=== PATIENT | female | born 1960 | race African-American/Black ===

== ENCOUNTER 2016-11-11 20:47 | Emergency (ER) | payer OTHER ==
[~2016-11-11] VITALS: Ht 157.5 cm; Wt 72.6 kg
[2016-11-11 21:19] VITALS: BP 175/109
== END 2016-11-12 07:00 | disposition left against medical advice (07) ==
LOC: ER 11-12 06:57
DX: R51 Headache (principal); I10 Essential (primary) hypertension; Z90.710 Acquired absence of both cervix and uterus

== ENCOUNTER 2020-04-11 01:58 | Emergency (ER) | payer BC, OTHER ==
[~2020-04-11] VITALS: Ht 157.5 cm; Wt 73.0 kg
[2020-04-11 04:00] VITALS: BP 147/93
== END 2020-04-11 04:01 | disposition home or self-care (01) ==
LOC: ER 01:58
DX: I10 Essential (primary) hypertension (principal); Z90.710 Acquired absence of both cervix and uterus
CPT/HCPCS: 99281

== ENCOUNTER 2021-03-23 22:05 | Emergency (ER) | payer OTHER ==
[~2021-03-23] VITALS: Ht 157.5 cm; Wt 70.0 kg
[~2021-03-23 22:05] MED LIST: ASPI-1160 PO; LEVO75TA7 PO; LIP40 PO; LOSA100T32 PO
[2021-03-23 22:15] VITALS: BP 150/85
== END 2021-03-24 01:26 | disposition left against medical advice (07) ==
LOC: ER 22:05
DX: Z53.21 Procedure and treatment not carried out due to patient leaving prior to being seen by health care provider (principal); I10 Essential (primary) hypertension; R07.89 Other chest pain
CPT/HCPCS: 93005

== ENCOUNTER 2021-04-03 00:10 | Inpatient (IN) | payer OTHER ==
[~2021-04-03] VITALS: Ht 157.5 cm; Wt 78.1 kg
[2021-04-03 04:06] LABS: BASOPHILS % 0.7 % (0.0-2.0); HEMATOCRIT. 41.5 % (36.0-48.0); HEMOGLOBIN. 14.5 g/dL (12.0-16.0); LYMPHOCYTES % 26.4 % (20.0-50.0); MEAN CORPUSCULAR HEMOGLOBIN 30.5 pg (28.0-32.0); MEAN CORPUSCULAR VOLUME 86.9 fL (81.0-99.0); MONOCYTES % 6.4 % (2.0-8.0); NEUTROPHILS % 64.5 % (40.0-76.0); PLATELET 193 x1000/uL (130-400); RED BLOOD CELL COUNT 4.77 mill/uL (4.2-5.4)
[2021-04-03 04:14] LABS: CHLORIDE 108 mEq/L (98-107)
[2021-04-03] MEDS ORDERED: ONDANSETRON HCL 4MG/2ML INJ IV PRN (09:15)
[2021-04-03 10:40] LABS: *AMPHETAMINES SCREEN URINE NEGATIVE (NEGATIVE); *BARBITURATES SCREEN URINE NEGATIVE (NEGATIVE); *BENZODIAZEPINES SCREEN URINE NEGATIVE (NEGATIVE); *COCAINE SCREEN URINE NEGATIVE (NEGATIVE); METHADONE URINE SCREEN NEGATIVE (NEGATIVE); OPIATES URINE SCREEN NEGATIVE (NEGATIVE)
[2021-04-03 10:41] LABS: CANNABINOID URINE SCREEN NEGATIVE (NEGATIVE); PHENCYCLIDINE URINE SCREEN NEGATIVE (NEGATIVE)
[2021-04-03] MEDS: LOSARTAN POTASSIUM 50 MG TABLET PO SCH ×2 (11:05→11:09)
[2021-04-03] MEDS: ENOXAPARIN 40MG/0.4ML SYR SUBCUT SCH ×2 (11:05→11:09)
[2021-04-03] MEDS: ACETAMINOPHEN 325MG TABLET PO PRN ×2 (15:30→22:34)
[2021-04-03 17:42] VITALS: BP 124/83
[2021-04-03] MEDS ORDERED: POTA10CA42 PO (18:39)
[2021-04-03 20:00] VITALS: BP_SYST 131; BP_SYST 138; BP_SYST 146; BP_DIAS 81; BP_DIAS 86
[2021-04-03] MEDS: AMLODIPINE 10MG TABLET PO SCH (20:50)
[2021-04-03 21:44] LABS: HEMATOCRIT. 40.5 % (36.0-48.0); HEMOGLOBIN. 13.8 g/dL (12.0-16.0); LYMPHOCYTES % 29.7 % (20.0-50.0); MEAN CORPUSCULAR HEMOGLOBIN 29.5 pg (28.0-32.0); MEAN CORPUSCULAR VOLUME 86.3 fL (81.0-99.0); MEAN PLATELET VOLUME 7.9 fl (7.4-10.4); MONOCYTES % 8.4 % (2.0-8.0); NEUTROPHILS % 58.9 % (40.0-76.0); PLATELET 204 x1000/uL (130-400); RED BLOOD CELL COUNT 4.69 mill/uL (4.2-5.4); RED CELL DISTRIBUTION WIDTH 12.9 % (11.6-14.6)
[2021-04-03 21:47] LABS: CHLORIDE 111 mEq/L (98-107)
[2021-04-04] VITALS: BP 102/66
[2021-04-04 04:00] VITALS: BP 102/64
[2021-04-04] MEDS ORDERED: LEVOTHYROXINE SODIUM 50MCG TABLET PO SCH (07:20)
[2021-04-04 08:00] VITALS: BP_SYST 105; BP_SYST 110; BP_SYST 124; BP_DIAS 60; BP_DIAS 78; BP_DIAS 82
[2021-04-04] MEDS: AMLODIPINE 10MG TABLET PO SCH (08:35)
[2021-04-04] MEDS: ENOXAPARIN 40MG/0.4ML SYR SUBCUT SCH (08:37)
[2021-04-04 12:00] VITALS: BP 97/64
[2021-04-04] MEDS ORDERED: AMLO10TA80 MT (12:46)
[2021-04-04 13:31] VITALS: BP 110/66
[2021-04-04 14:38] VITALS: BP 118/60
== END 2021-04-04 16:15 | disposition home or self-care (01) | DRG 812 ==
LOC: ER 00:10 → MICUSO 05:41 → 6WST 15:25
PROVIDERS: ADMIT Internal Medicine; ATTEND Internal Medicine
DX: T44.7X1A Poisoning by beta-adrenoreceptor antagonists, accidental (unintentional), initial encounter (principal); E87.8 Other disorders of electrolyte and fluid balance, not elsewhere classified; G90.8 Other disorders of autonomic nervous system; E78.5 Hyperlipidemia, unspecified; E89.0 Postprocedural hypothyroidism; I10 Essential (primary) hypertension; R00.1 Bradycardia, unspecified; I16.0 Hypertensive urgency; Y92.89 Other specified places as the place of occurrence of the external cause; Z82.49 Family history of ischemic heart disease and other diseases of the circulatory system; Z85.9 Personal history of malignant neoplasm, unspecified; Z98.891 History of uterine scar from previous surgery
CPT/HCPCS: 36415; 71045; 80048; 80053; 80305; 83880; 84443; 84484; 85025; 85379; 93005; 93306; 99285; J1650

== ENCOUNTER 2021-07-31 22:13 | Emergency (ER) | payer OTHER ==
[~2021-07-31] VITALS: Ht 157.5 cm; Wt 70.0 kg
[~2021-07-31 22:13] MED LIST changes: +AMLO10TA80 MT; +POTA10CA42 PO
[2021-07-31 22:40] VITALS: BP 157/102
== END 2021-08-01 05:34 | disposition left against medical advice (07) ==
LOC: ER 22:13
DX: R51.9 Headache, unspecified (principal); R00.0 Tachycardia, unspecified; Z53.21 Procedure and treatment not carried out due to patient leaving prior to being seen by health care provider
CPT/HCPCS: 93005

== ENCOUNTER 2021-09-17 17:31 | Emergency (ER) | payer OTHER ==
[~2021-09-17] VITALS: Ht 157.5 cm; Wt 70.0 kg
[2021-09-17] MEDS ORDERED: ONDANSETRON HCL 4MG/2ML INJ IV STA (20:29)
[2021-09-17] MEDS ORDERED: MORPHINE SULFATE 4 MG/ML CPJ (NOT FOR IM USE) IV STA (20:29)
[2021-09-17 20:47] LABS: CLARITY URINE CLEAR (CLEAR); COLOR URINE YELLOW (YELLOW); KETONES URINE 1+ (NEGATIVE); LEUKOCYTE ESTERASE URINE 2+ (NEGATIVE); NITRITE URINE NEGATIVE (NEGATIVE); OCCULT BLOOD URINE TRACE (NEGATIVE); PH URINE 5.5 (4.5-8.0); PROTEIN URINE NEGATIVE (NEGATIVE); SPECIFIC GRAVITY URINE 1.016 (1.005-1.030); UROBILINOGEN URINE 0.2 E.U./dL (0.2-1.0)
[2021-09-17] MEDS ORDERED: KETOROLAC 15MG/ML VIAL IV ONE (21:00)
[2021-09-17 21:06] VITALS: BP 134/83
[2021-09-17 21:12] LABS: BASOPHILS % 0.6 % (0.0-2.0); EOSINOPHILS % 0.6 % (0.0-5.0); HEMATOCRIT. 44.6 % (36.0-48.0); HEMOGLOBIN. 15.1 g/dL (12.0-16.0); LYMPHOCYTES % 24.2 % (20.0-50.0); MEAN CORPUSCULAR HEMOGLOBIN 29.1 pg (28.0-32.0); MEAN CORPUSCULAR VOLUME 85.8 fL (81.0-99.0); MEAN PLATELET VOLUME 7.8 fl (7.4-10.4); MONOCYTES % 7.4 % (2.0-8.0); NEUTROPHILS % 67.2 % (40.0-76.0); PLATELET 208 x1000/uL (130-400); RED BLOOD CELL COUNT 5.19 mill/uL (4.2-5.4)
[2021-09-17 21:19] LABS: CHLORIDE 106 mEq/L (98-107)
[2021-09-17] MEDS ORDERED: IOHEXOL-300 100 ML BOTTLE ONE (23:30)
[2021-09-18] MEDS ORDERED: CIPR500S3 PO (00:07)
[2021-09-18] MEDS ORDERED: METR-167 MT (00:07)
[2021-09-18] MEDS ORDERED: IBUP-2028 MT (00:14)
[2021-09-18] MEDS ORDERED: ACET-2708 MT (00:14)
== END 2021-09-18 00:27 | disposition home or self-care (01) ==
LOC: ER 17:31
DX: K57.92 Diverticulitis of intestine, part unspecified, without perforation or abscess without bleeding (principal); I10 Essential (primary) hypertension; Z98.890 Other specified postprocedural states; Z90.710 Acquired absence of both cervix and uterus; Z79.899 Other long term (current) drug therapy
CPT/HCPCS: 36415; 71045; 74177; 80053; 81003; 83605; 83690; 84484; 85025; 93005; 96374; 96375; 99285; J1885; J2405; Q9967; J2270

== ENCOUNTER 2022-06-25 16:43 | Emergency (ER) | payer MEDICAID, OTHER ==
[~2022-06-25] VITALS: Ht 162.6 cm; Wt 64.0 kg
[~2022-06-25 16:43] MED LIST changes: +ACET-2708 MT; +CIPR500S3 PO; +IBUP-2028 MT; +METR-167 MT
[2022-06-25] MEDS ORDERED: MAGNESIUM/ALUMINUM HYDROXIDE/SIMETHICONE 30ML UDC PO STA (21:41)
[2022-06-25] MEDS ORDERED: ONDANSETRON HCL 4MG TABLET PO ONE (21:45)
[2022-06-25] MEDS ORDERED: FAMOTIDINE 20MG TABLET PO ONE (21:45)
[2022-06-25 21:54] LABS: CLARITY URINE CLEAR (CLEAR); COLOR URINE YELLOW (YELLOW); KETONES URINE 1+ (NEGATIVE); LEUKOCYTE ESTERASE URINE NEGATIVE (NEGATIVE); NITRITE URINE NEGATIVE (NEGATIVE); OCCULT BLOOD URINE NEGATIVE (NEGATIVE); PH URINE 5.5 (4.5-8.0); PROTEIN URINE NEGATIVE (NEGATIVE); SPECIFIC GRAVITY URINE 1.013 (1.005-1.030); UROBILINOGEN URINE 0.2 E.U./dL (0.2-1.0)
[2022-06-25] MEDS ORDERED: ONDANSETRON 4MG ODT PO ONE (22:30)
[2022-06-25 23:19] LABS: CHLORIDE 107 mEq/L (98-107)
[2022-06-26 00:01] LABS: BASOPHILS % 0.8 % (0.0-2.0); EOSINOPHILS % 1.7 % (0.0-5.0); HEMATOCRIT. 42.3 % (36.0-48.0); HEMOGLOBIN. 14.2 g/dL (12.0-16.0); LYMPHOCYTES % 39.3 % (20.0-50.0); MEAN CORPUSCULAR HEMOGLOBIN 29.5 pg (28.0-32.0); MEAN CORPUSCULAR VOLUME 87.9 fL (81.0-99.0); MEAN PLATELET VOLUME 8.3 fl (7.4-10.4); MONOCYTES % 8.9 % (2.0-8.0); NEUTROPHILS % 49.3 % (40.0-76.0); PLATELET 212 x1000/uL (130-400); RED BLOOD CELL COUNT 4.81 mill/uL (4.2-5.4); RED CELL DISTRIBUTION WIDTH 13.3 % (11.6-14.6)
[2022-06-26 00:49] VITALS: BP 137/85
[2022-06-26] MEDS ORDERED: ACETAMINOPHEN 325MG TABLET PO ONE (01:30)
== END 2022-06-26 02:33 | disposition home or self-care (01) ==
LOC: ER 16:49
DX: B34.9 Viral infection, unspecified (principal); Z20.822 Contact with and (suspected) exposure to COVID-19; R94.31 Abnormal electrocardiogram [ECG] [EKG]; I10 Essential (primary) hypertension; E07.9 Disorder of thyroid, unspecified; Z87.19 Personal history of other diseases of the digestive system
CPT/HCPCS: 36415; 71045; 80053; 81003; 83690; 83880; 84484; 85025; 87426; 87804; 93005; 99285; Q0162